=== PATIENT | female | born 1945 | race Caucasian/White ===

== ENCOUNTER → 2020-01-10 | Outpatient (CLI) | payer MEDICARE ==
[2020-01-10 13:30] LABS: Appearance,Urine Clear (Clear); Bilirubin,Urine Negative (Negative); Blood,Urine Negative (Negative); Color,Urine Yellow; Glucose,Urine (UA) Negative (Negative); Ketones,Urine Negative (Negative); Leukocyte Esterase,Urine Negative (Negative); Nitrite,Urine Negative (Negative); PH, Urine 5.5 (5.0-8.0); Protein,Urine Negative (Negative); Specific Gravity,Urine 1.017 (1.001-1.035); Urobilinogen,Urine <2.0 mg/dL (<2.0)
[2020-01-10 13:51] LABS: HCT 41.8 % (34.0-46.0); HGB 13.1 gm/dL (11.4-16.0); Hypochromasia Slight; MCH 29.4 pg (25.0-35.0); MCHC 31.3 g/dL (31.0-37.0); MCV 93.9 fL (80.0-100.0); Mean Platelet Volume 7.2; Platelet Count 474 k/uL (150-450); RBC 4.45 m/uL (3.80-5.40); RDW 13.2 % (11.5-15.5); WBC 11.5 k/uL (3.8-10.6)
[2020-01-10 14:05] LABS: Potassium 4.6 mmol/L (3.5-5.1); Prothrombin Time 10.2 sec (9.0-12.0)
[2020-01-10 14:06] LABS: ALT 10 U/L (4-34); AST 16 U/L (14-36); African American GFR (CKD) >90 (>60 ml/min/1.73 sqM); Albumin 4.1 g/dL (3.5-5.0); Alkaline Phosphatase 119 U/L (38-126); Anion Gap 11 mmol/L; Blood Urea Nitrogen 18 mg/dL (7-17); Calcium 9.7 mg/dL (8.4-10.2); Carbon Dioxide 23 mmol/L (22-30); Chloride 107 mmol/L (98-107); Glucose 102 mg/dL (74-99); Non-African American GFR(CKD) 89 (>60 ml/min/1.73 sqM); Sodium 141 mmol/L (137-145); Total Bilirubin 0.2 mg/dL (0.2-1.3)
== END | disposition home or self-care (01) ==
LOC: LABPAT 12:15
PROVIDERS: ATTEND Orthopaedic Surgery
DX: Z01.818 Encounter for other preprocedural examination (principal); Z79.01 Long term (current) use of anticoagulants
CPT/HCPCS: 36415; 80053; 81003; 85027; 85610; 85730; 87070

== ENCOUNTER 2020-01-22 07:10 | Day surgery (SDC) | payer MEDICARE ==
[2020-01-18 09:16] VITALS: BMI 22.6
[~2020-01-22 07:10] MED LIST: ACETAMINOPHEN TAB 500 MG TAB PO ONE; BISACODYL 10 MG SUPP RECTAL PRN; DEXAMETHASONE SOD PHOSPHATE 10 MG/ML 1 ML VIAL IV ONE; DIAZEPAM 5 MG TAB PO PRN; GABAPENTIN 300 MG CAP PO ONE; HYDROcodone/APAP 5-325MG 1 EACH TAB PO PRN; HYDROmorphone 0.5 MG/0.5 ML SYRINGE IVP PRN; MAGNESIUM HYDROXIDE 2,400 MG/10 ML CUP PO PRN; MELOXICAM 7.5 MG TAB PO ONE; MIDAZOLAM 2 MG/2 ML VIAL IV PRN; NA PHOS,M-B/NA PHOS,DI-BA 133 ML ENEMA RECTAL PRN; NALOXONE 0.4 MG/ML 1 ML VIAL IV PRN; ONDANSETRON 4 MG/2 ML VIAL IVP ONE; ONDANSETRON 4 MG/2 ML VIAL IVP PRN; ROPIVACAINE 246.25 MG, EPINEPHrine 0.5 MG, KETOROLAC 30 MG, cloNIDine HCL/PF 80 MCG, WA... MISCELLANE ONE; TRANEXAMIC ACID 1,000 MG in SODIUM CHLORIDE 0.9% 100 ML IVPB ONE; hydrOXYzine PAMOATE 25 MG CAP PO PRN
[2020-01-22] MEDS ORDERED: ONDANSETRON 4 MG/2 ML VIAL ONE (07:23)
[2020-01-22] MEDS ORDERED: ACETAMINOPHEN TAB 500 MG TAB ONE (07:23)
[2020-01-22] MEDS: LACTATED RINGERS 1,000 ML IV SCH (07:45)
[2020-01-22] MEDS ORDERED: ROPIVACAINE 0.2%-NS ON-Q PUMP 1,090 MG, EMPTY PAIN BALL 1 EACH MISCELLANE PRN (08:42)
--- NOTE | 2020-01-22 08:42 | P.ANPRN ---
Procedure Note - Anesthesia - Nerve Block Performed Left Adductor Canal Infusion Date of Procedure: 01/22/20 Procedure Start Time: 08:10 Procedure Stop Time: 08:25 Location of Patient: PreOp Indication: Acute Post-Operative Pain, Requested by Surgeon Sedation Type: Sedate with meaningful contact maintained Preparation: Sterile Prep, Sterile Dressing Position: Supine Catheter: Indwelling Needle Types: Pajunk Needle Gauge: 21 Ultrasound used to visualize needle placement: Yes Ultrasound used to observe medication spread: Yes Blood Aspirated: No Pain Paresthesia on Injection Noted: No Resistance on Injection: Normal Image Stored and Saved: Yes Events: Uneventful and Well Tolerated (Ropivacaine 0.5% 20 mls)
[2020-01-22] MEDS ORDERED: fentaNYL (PF) 50 MCG/ML 2 ML AMP ONE (09:21)
[2020-01-22] MEDS ORDERED: MIDAZOLAM 2 MG/2 ML VIAL ONE (09:21)
[2020-01-22] MEDS ORDERED: PROPOFOL 10 MG/ML 20 ML VIAL IV ONE (09:21)
[2020-01-22] MEDS ORDERED: TRANEXAMIC ACID 1,000 MG/10 ML VIAL ONE (09:21)
[2020-01-22] MEDS ORDERED: SODIUM CHLORIDE 0.9% 100 ML BAG ONE (09:21)
--- NOTE | 2020-01-22 10:41 | P.OP ---
Date of Procedure: 01/22/20 Preoperative Diagnosis: Severe osteoarthritis left knee Postoperative Diagnosis: Severe osteoarthritis left knee Procedure(s) Performed: Left total knee arthroplasty Implants: [employer] II CR Oxinium cruciate retaining femoral component size 3, left [employer] left nonporous tibial baseplate size 3 [employer] Journey II, XLPE Deep Dished articular insert, size 10 mm, Size 3-4 left [employer] BCS resurfacing oval patellar component, 28 mm All components were cemented using Palacos R bone cement.. The articulation is Oxinium on polyethylene. Anesthesia: spinal Surgeon: Zack Jiménez Pyrometer Operator #1: Maya Magana Estimated Blood Loss (ml): 25 Pathology: other (Bone and cartilage) Condition: stable Disposition: PACU Indications for Procedure: After failure of conservative treatment we discussed the surgical and nonsurgical treatment options at length. Patient wishes to proceed with a total knee arthroplasty. Complications specific to this procedure were discussed at length, including but not limited to infection, bleeding, stiffness, and nerve injury. Covid-19 was also discussed at length with the patient, and they are aware of the current policies and procedures. The patient was given the option of delaying surgery, but they elect to proceed knowing these risks. Patient is aware of all these complications and informed consent was obtained Operative Findings: The operative findings are consistent with severe osteoarthritis the left knee Description of Procedure: Patient was seen in the preoperative area consent was reviewed and operative site was marked with a skin marker. An adductor canal pain catheter was placed by anesthesia in the preoperative area. Patient was then brought to the operating room and given preoperative antibiotics intravenously. A spinal anesthetic was administered by the anesthesia department. A tourniquet was placed on the upper thigh and the lower extremity was prepped and draped in usual sterile fashion. A gram of transexamic acid was given. A universal timeout was then performed which confirmed the patient's name, surgical site, ALLERGIES, and consent. The lower extremity was then exsanguinated and tourniquet was inflated to 250 mmHg. A standard and anterior midline approach to the knee was performed. The skin and subcutaneous tissue was dissected down to the patellar tendon. A medial parapatellar arthrotomy was then performed. The knee was then extended, the patellar was everted, and the knee was again flexed. The patellar fat pad was removed in order to enhance exposure. Anterior horns of both menisci were excised, and a release was performed to the posterior medial aspect of the knee. On gross visual inspection, there was complete loss of articular cartilage in the medial and patellofemoral joint spaces. There was also significant cartilage damage in the lateral compartment. There were multiple periarticular osteophytes which were then removed with a Ronguer. The femoral canal was then opened with the 9.5 mm intramedullary drill. The 8 mm intramedullary vin was then inserted into the femoral canal. The distal femoral cutting guide was then placed and set for 5 of valgus. The distal femoral cutting block was then pinned in place. The intramedullary vin was then removed, and the distal femur was then cut. The cutting block was then removed and the cut was checked for symmetry. Next, the sizing guide was then placed and set for 3 external rotation based off of the epicondylar axis and Whitesides line. Pins were then placed and the drill holes, and the femur was sized with the sizing stylus. The pins were then removed, and the sizing guide was then removed. The spikes of the femoral block was then placed into the predrilled holes, and malleted into place. Two 45 mm pins were then placed into the fixation holes on the cutting block. An mena wing was then used to ensure there would be no notching with the anterior cut. The anterior condyles were cut without notching. The anterior cord cut was then performed, followed by the posterior cut, posterior chamfer cut, and the anterior chamfer cut. The collateral ligaments were protected during the entire process. The cutting block was then removed, and the femoral canal was plugged with autologous bone. Attention was then directed to the tibia. The remaining ACL was removed with a Ronguer, and the tibia was then gently subluxed forward with a large bent knee retractor. Any remaining menisci was excised. The posterior lateral corner was cauterized in order to cauterize the lateral geniculate artery. The extra medullary tibial cutting guide was then placed, set for the appropriate rotation, slope, and depth of resection. The proximal tibia cutting guide was then pinned in place. Proximal tibia was then cut and sized. Next trials were then placed with the appropriate-sized insert. The knee was able to fully extend and flex to 130 and was stable throughout all range of motion. The knee was then extended, patella everted. Patella was then measured, and then using an osteotomy guide, the patella was cut at the appropriate level. The patella was then measured and drilled and the patella trial was then placed. The knee was then taken through range of motion with the patella trial and the patella tracked normally. The knee was then extended patella trial was then removed and the patella was everted. Knee was then flexed and lug holes were drilled through the femoral trial and the femoral trial was then removed. The tibial was then exposed, and the tibial broach guide was then pinned in place after it was set for the appropriate rotation to allow for the most coverage without overhang. The tibia was then reamed and broached. The cut surfaces of bone were then irrigated with pulsatile lavage. The posterior structures were injected with the ropivacaine solution. The knee was also irrigated with Irrisept solution. The components were then opened, the cement was mixed, and the components were then cemented in place. The cement was allowed to harden with the knee in full extension. While the cement was hardening, the remaining soft tissues were then injected with a ropivacaine solution, which consisted of 246.25 mg of ropivacaine, 0.5 mg of epinephrine, 30 mg of Toradol, 80 g of clonidine, and 48.45 mL of sterile water, for a total of 100 mL of fluid injected. After the cemented hardened. The tourniquet was released, and hemostasis was obtained. A second gram of transexamic acid was given. The knee was again irrigated. The knee was again taken through range of motion and found to be stable throughout all range of motion of 0-130, and the patella tracked normally. The fascia was then closed with #2 strata fix suture. The subcutaneous tissue was closed with 3-0 Vicryl and 3-0 strata fix. Dermabond glue was used for the skin and placed with the knee in flexion. The patient was placed in a sterile silver dressing. Patient was then transferred to recovery room in stable condition. The clinical nursing assistant ARTHUR Boyce was required due the complexity surgery and the need for a skilled surgical services manager. She assisted in positioning, draping, retraction, and closure of the wound.
[2020-01-22] MEDS ORDERED: SODIUM CHLORIDE 0.9% 1,000 ML IV ONE ×2 (13:04)
--- NOTE | 2020-01-22 16:17 | XR ---
EXAMINATION TYPE: XR knee limited LT DATE OF EXAM: 01/22/2020 COMPARISON: NONE HISTORY: 74-year-old female evaluation for postoperative abnormality in alignment TECHNIQUE: 2 views FINDINGS: Images show placement of left knee total arthroplasty. The distal femoral and proximal tibial compone nts of the prosthesis appear well seated without periprosthetic fracture. Alignment grossly anatomic. Anterior soft tissue swelling with scattered soft tissue air and intra-articular air related to rece nt operation. IMPRESSION: Uncomplicated postoperative appearance left total knee arthroplasty.
[2020-01-22] MEDS: SODIUM CHLORIDE 0.9% 1,000 ML IV SCH ×2 (16:43→23:42)
[2020-01-22 20:41] VITALS: RESP 15
[2020-01-22] MEDS ORDERED: SENNOSIDES-DOCUSATE SODIUM 1 EACH TAB PO SCH (21:00)
--- NOTE | 2020-01-22 21:58 | P.CONS ---
History of Present Illness - Reason for Consult Consult date: 01/22/20 Medical management Requesting physician: Zack Jiménez - Chief Complaint Left knee pain - History of Present Illness Consultation: This is a very pleasant [address] Laura Marcus. Today underwent left total knee arthroplasty. Postprocedure pain is well controlled. No nausea vomiting. Did tolerate a light supper. Chronic stable medical conditions include hyperl ipidemia, rheumatoid arthritis, some osteoarthritis, dry eyes. Denies any cardiac history. No nausea vomiting. No fever or chills. No chest pain. Patient has been doing well on Humira for the rheumatoid arthritis Review of systems: GEN.: None EYES: Dry eyes HEENT: None NECK: None RESPIRATORY: None CARDIOVASCULAR: None GASTROINTESTINAL: None GENITOURINARY: None MUSCULOSKELETAL: Joint pains LYMPHATICS: None HEMATOLOGICAL: None PSYCHIATRY: None NEUROLOGICAL: None Past medical history to include: Osteoarthritis, rheumatoid arthritis, dry eyes, hyperlipidemia Social history: Does not smoke. Alcohol occasionally. . Family history: Reviewed, noncontributory to presentation Physical examination: VITAL SIGNS: 97.6, 75, 18, 105/74, 95% room air GENERAL: BMI 21.5, laying in bed comfortable. EYES: Pupils equal. Conjunctiva normal. HEENT: External appearance of nose and ears normal, oral cavity grossly normal. NECK: JVD not raised; masses not palpable. HEART: First and second heart sounds are normal; no edema. LUNGS: Respiratory rate normal; clear to auscultation. ABDOMEN: Soft, nontender, liver spleen not palpable, no masses palpable. PSYCH: Alert and oriented x3; mood and affect normal MUSCULOSKELETAL: Dressing over the left knee, evidence of severe RA specially in the right hand. NEUROLOGICAL: Cranial nerves grossly intact; no facial asymmetry, power and sensation grossly intact. LYMPHATICS: No lymph nodes palpable in the axilla and neck INVESTIGATIONS, reviewed in the clinical context: White count 11.5 hemoglobin 13.4 and potassium 4.6 creatinine 0.65 Assessment: -Left total knee arthroplasty -Advanced rheumatoid arthritis -Primary osteoarthritis -Dry eyes -Hyperlipidemia Plan: Home medications to be resumed. Pain control is in place. Patient is on aspirin for DVT prophylaxis per Dr. Jiménez. Care was discussed with the patient. Question answered. Patient to follow-up with Dr. Marcus upon discharge. Thank you Dr. Jiménez Past Medical History Past Medical History: Hyperlipidemia, Rheumatoid Arthritis (RA) History of Any Multi-Drug Resistant Organisms: None Reported Past Surgical History: Hysterectomy, Orthopedic Surgery Additional Past Surgical History / Comment(s): Bilateral Cataract surgery, bilateral wrist fusions, left hand surgery, left elbow surgery, bilateral foot surgery. Past Anesthesia/Blood Transfusion Reactions: No Reported Reaction Smoking Status: Never smoker - Past Family History Father Family Medical History: No Reported History Medications and Allergies Home Medications Medication Instructions Recorded Confirmed Type Acetaminophen [Tylenol] 325 mg PO Q4H 01/18/20 01/18/20 History Adalimumab [Humira Pen] 40 mg SQ [id number] 01/18/20 01/18/20 History Pravastatin Sodium [Pravachol] 20 mg PO HS 01/18/20 01/18/20 History cycloSPORINE [Restasis] 1 applicator BOTH EYES BID 01/18/20 01/18/20 History Allergies Allergy/AdvReac Type Severity Reaction Status Date / Time No Known Allergies Allergy Verified 01/22/20 07:28 Physical Exam Vitals: Vital Signs Temp Pulse Pulse Resp BP Pulse Ox 01/22/20 20:08 97.7 F 87 15 107/60 94 L 01/22/20 16:13 97.6 F 75 18 105/74 95 01/22/20 14:40 72 16 111/59 98 01/22/20 13:40 61 16 104/52 100 01/22/20 13:10 70 16 100/51 100 01/22/20 12:45 72 16 99/52 100 01/22/20 12:15 65 16 103/55 100 01/22/20 12:00 68 16 104/59 100 01/22/20 11:45 69 16 103/56 100 01/22/20 11:30 62 16 105/54 99 01/22/20 11:19 96.9 F L 76 16 99/50 99 01/22/20 08:29 71 16 111/59 98 01/22/20 07:28 97.2 F L 97 16 133/75 97 Intake and Output 01/22/20 01/22/20 01/22/20 06:59 14:59 22:59 Intake Total 750 250 Output Total 25 Balance 725 250 Intake: IV 750 150 Oral 100 Output: Estimated Blood Loss 25 Other: Weight 53.3 kg 53.3 kg
[2020-01-22] MEDS: ASPIRIN 325 MG TAB PO SCH (23:14)
[2020-01-23] MEDS: LACTATED RINGERS 1,000 ML IV SCH (06:07)
[2020-01-23 06:43] LABS: Basophils % (A) 0 %; Eosinophils # (A) 0.1 k/uL (0-0.7); Eosinophils % (A) 1 %; HCT 30.8 % (34.0-46.0); Hypochromasia Slight; Lymphocytes % (A) 23 %; MCH 30.4 pg (25.0-35.0); MCHC 32.1 g/dL (31.0-37.0); MCV 94.7 fL (80.0-100.0); Mean Platelet Volume 6.8; Monocytes # (A) 0.8 k/uL (0-1.0); Monocytes % (A) 9 %; Neutrophils # (A) 5.6 k/uL (1.3-7.7); Neutrophils % (A) 64 %; Platelet Count 299 k/uL (150-450); RBC 3.26 m/uL (3.80-5.40); RDW 13.1 % (11.5-15.5); WBC 8.7 k/uL (3.8-10.6)
[2020-01-23 07:09] LABS: HGB 9.9 gm/dL (11.4-16.0)
[2020-01-23] MEDS: SODIUM CHLORIDE 0.9% 1,000 ML IV SCH (07:28)
[2020-01-23] MEDS: ASPIRIN 325 MG TAB PO SCH (08:04)
[2020-01-23 09:00] VITALS: BP 108/57; PULSE 66; TEMP 98.5
[2020-01-23] MEDS ORDERED: MELOXICAM 7.5 MG TAB PO SCH (09:00)
--- NOTE | 2020-01-23 12:03 | P.DS ---
Providers Expected date of discharge: 01/23/20 Attending physician: Zack Jiménez Consults: 01/22/20 07:06 Consult Physician Routine Consulting Provider: Marlo Ibrahim Consult Reason/Comments: medical management Do you want consulting provider notified?: Yes Primary care physician: Court Marcus - Discharge Diagnosis(es) (1) Osteoarthritis of left knee Current Visit: Yes Status: Acute (2) Status post total left knee replacement Current Visit: Yes Status: Acute Hospital Course: This is a 74-year-old female with known history of degenerative arthritis of the left knee. The patient presents for evaluation. After discussion and consideration patient elects to proceed with total knee arthroplasty. The patient is seen preoperatively by Dr. Jiménez and medically cleared for surgery by their primary care physician. Patient is admitted to [facility] on 01/22/2020 for total knee arthroplasty. The procedures performed without complication or sequelae. The patient is doing well postoperatively. Labs and vital signs are stable on day of discharge. On day of discharge patient's knee incision is healing well. There is minimal erythema. There is no drainage noted at this time. There is minimal soft tissue swelling to the knee. Patient has full foot and ankle motion without difficulty or pain. Calf is soft and nontender to palpation. Neurovascular status to the left lower extremity is intact. Patient is discharged home in good condition. Opioid start talking form is reviewed and signed at patient bedside. Please see med rec for accurate list of home medications. Plan - Discharge Summary Discharge Rx Participant: Yes New Discharge Prescriptions: New Aspirin 325 mg PO BID #60 tab HYDROcodone/APAP 5-325MG [[place] 5-325] 1 - 2 tab PO Q6HR PRN #45 tab PRN Reason: Pain Sennosides [Senokot] 2 tab PO DAILY PRN #60 tablet PRN Reason: Constipation Continue cycloSPORINE [Restasis] 1 applicator BOTH EYES BID Acetaminophen [Tylenol] 325 mg PO Q4H Pravastatin Sodium [Pravachol] 20 mg PO HS Adalimumab [Humira Pen] 40 mg SQ [id number] Discharge Medication List Acetaminophen [Tylenol] 325 mg PO Q4H 01/18/20 [History] Adalimumab [Humira Pen] 40 mg SQ [id number] 01/18/20 [History] Pravastatin Sodium [Pravachol] 20 mg PO HS 01/18/20 [History] cycloSPORINE [Restasis] 1 applicator BOTH EYES BID 01/18/20 [History] Aspirin 325 mg PO BID #60 tab 01/23/20 [Rx] HYDROcodone/APAP 5-325MG [[place] 5-325] 1 - 2 tab PO Q6HR PRN #45 tab 01/23/20 [Rx] Sennosides [Senokot] 2 tab PO DAILY PRN #60 tablet 01/23/20 [Rx] Follow up Appointment(s)/Referral(s): [facility], [NON-STAFF] - Zack Jiménez DO [Doctor of Osteopathic Medicine] - 2 Weeks Cade Waldron [NON-STAFF] - Patient Instructions/Handouts: Precautions after Total Joint Replacement Surgery (DC) Activity/Diet/Wound Care/Special Instructions: 1. Please call [employer] once home to arrange delivery of Continuous Passive Motion (CPM) machine: [phone] Weightbearing as tolerated with a walker. CPM 5-6h daily. Leave dressing intact. May be removed by home care nurse or by patient in 10 days. May shower with dressing on. Recommend use of compression stockings daily until follow up to help prevent swelling and blood clots. May remove at night before sleeping. Please follow up with [facility] and call with any questions or concerns, . Discharge Disposition: HOME WITH HOME HEALTH SERVICES
--- NOTE | 2020-01-23 12:37 | P.PN ---
Progress Note - Text 01/22 646am 74-year-old female status post total knee replacement. Patient has an On-Q pump for postop pain control, patient seen and evaluated this morning, patient has a VAS of 2. On-Q pump solution running at 8 mL an hour. Plan to continue On-Q pump infusion
--- NOTE | 2020-01-23 23:07 | P.PN ---
Progress Note - Text Progress Note Date: 01/23/20 - Chief Complaint Left knee pain Consultation: This is a very pleasant [address] Laura Marcus. Today underwent left total knee arthroplasty. Postprocedure pain is well controlled. No nausea vomiting. Did tolerate a light supper. Chronic stable medical conditions include hyperlipidemia, rheumatoid arthritis, some osteoarthritis, dry eyes. Denies any cardiac history. No nausea vomiting. No fever or chills. No chest pain. Patient has been doing well on Humira for the rheumatoid arthritis Today-doing well. Pain control. Did tolerate her breakfast. Has been out of bed. Review of systems: Was done for constitutional, cardiovascular, GI, pulmonary. Musculoskeletal relevant finding as above Current medications reviewed in today's electronic records Physical examination: VITAL SIGNS: 98.5, 66, 18, 108/57, 96% room air GENERAL: BMI 21.5, laying in bed comfortable. EYES: Pupils equal. Conjunctiva normal. HEENT: External appearance of nose and ears normal, oral cavity grossly normal. NECK: JVD not raised; masses not palpable. HEART: First and second heart sounds are normal; no edema. LUNGS: Respiratory rate normal; clear to auscultation. ABDOMEN: Soft, nontender, liver spleen not palpable, no masses palpable. PSYCH: Alert and oriented x3; mood and affect normal MUSCULOSKELETAL: Dressing over the left knee, evidence of severe RA specially in the right hand. INVESTIGATIONS, reviewed in the clinical context: White count 8.7 hemoglobin 9.9 platelets 299 Previous testing White count 11.5 hemoglobin 13.4 and potassium 4.6 creatinine 0.65 Assessment: -Left total knee arthroplasty -Advanced rheumatoid arthritis -Primary osteoarthritis -Dry eyes -Hyperlipidemia -Acute postprocedure blood loss anemia expected from surgery Plan: Care discussed with the patient. Stable. Patient to follow-up with Dr. Marcus upon discharge. Thank you Dr. Jiménez
== END 2020-01-23 12:45 | disposition home health service (06) ==
LOC: OR 07:10 → 6PED 15:34 → OR 01-23 12:45
PROVIDERS: ATTEND Orthopaedic Surgery
DX: M17.12 Unilateral primary osteoarthritis, left knee (principal); M25.762 Osteophyte, left knee; Z97.3 Presence of spectacles and contact lenses; Z79.899 Other long term (current) drug therapy; Z98.890 Other specified postprocedural states; M06.9 Rheumatoid arthritis, unspecified; E78.5 Hyperlipidemia, unspecified; Z83.3 Family history of diabetes mellitus; Z98.49 Cataract extraction status, unspecified eye; Z90.710 Acquired absence of both cervix and uterus; E78.00 Pure hypercholesterolemia, unspecified
CPT/HCPCS: 97110; 97161; 64448; 76942; 85025; 88300; 73560; 27447; C1713; C1776; J2250; J0171; J1100; J0690 ×2; J2405; J3010; J1885; J2795 ×2; J2704; J0735

== ENCOUNTER → 2020-04-08 | Outpatient (CLI) | payer MEDICARE ==
[2020-04-08 14:53] LABS: Appearance,Urine Clear (Clear); Bilirubin,Urine Negative (Negative); Blood,Urine Negative (Negative); Color,Urine Light Yellow; Glucose,Urine (UA) Negative (Negative); Ketones,Urine Negative (Negative); Leukocyte Esterase,Urine Negative (Negative); Nitrite,Urine Negative (Negative); PH, Urine 5.5 (5.0-8.0); Protein,Urine Negative (Negative); Specific Gravity,Urine 1.009 (1.001-1.035); Urobilinogen,Urine <2.0 mg/dL (<2.0)
[2020-04-08 14:55] LABS: HCT 42.4 % (34.0-46.0); HGB 13.1 gm/dL (11.4-16.0); MCH 28.1 pg (25.0-35.0); MCHC 30.8 g/dL (31.0-37.0); MCV 91.3 fL (80.0-100.0); Mean Platelet Volume 6.7; Platelet Count 428 k/uL (150-450); RBC 4.64 m/uL (3.80-5.40); RDW 13.6 % (11.5-15.5); WBC 10.5 k/uL (3.8-10.6)
[2020-04-08 15:06] LABS: Albumin 4.4 g/dL (3.5-5.0); Calcium 9.8 mg/dL (8.4-10.2); Potassium 4.4 mmol/L (3.5-5.1); Total Bilirubin 0.3 mg/dL (0.2-1.3); Total Protein 8.6 g/dL (6.3-8.2)
[2020-04-08 15:19] LABS: Prothrombin Time 10.1 sec (9.0-12.0)
[2020-04-08 15:22] LABS: Partial Thromboplastin Time 21.6 sec (22.0-30.0)
== END | disposition home or self-care (01) ==
LOC: LABPAT 13:36
PROVIDERS: ATTEND Orthopaedic Surgery
DX: Z01.818 Encounter for other preprocedural examination (principal); Z79.01 Long term (current) use of anticoagulants; M17.11 Unilateral primary osteoarthritis, right knee; Z01.812 Encounter for preprocedural laboratory examination
CPT/HCPCS: 36415; 80053; 81003; 85027; 85610; 85730; 87070

== ENCOUNTER 2020-04-15 07:19 | Day surgery (SDC) | payer MEDICARE ==
[2020-04-08 09:32] VITALS: BMI 21.9
[~2020-04-15 07:19] MED LIST changes: -BISACODYL 10 MG SUPP RECTAL PRN; -DIAZEPAM 5 MG TAB PO PRN; -HYDROcodone/APAP 5-325MG 1 EACH TAB PO PRN; -MAGNESIUM HYDROXIDE 2,400 MG/10 ML CUP PO PRN; -NA PHOS,M-B/NA PHOS,DI-BA 133 ML ENEMA RECTAL PRN; -NALOXONE 0.4 MG/ML 1 ML VIAL IV PRN; -ONDANSETRON 4 MG/2 ML VIAL IVP PRN; +fentaNYL (PF) 50 MCG/ML 2 ML AMP IVP PRN; -hydrOXYzine PAMOATE 25 MG CAP PO PRN
[2020-04-15] MEDS: LACTATED RINGERS 1,000 ML IV SCH (08:07)
[2020-04-15] MEDS ORDERED: LIDOCAINE 1% (10MG/ML) FOR IV START INTRADERMA ONE (08:07)
[2020-04-15] MEDS ORDERED: MIDAZOLAM 2 MG/2 ML VIAL IVP ONE (08:27)
--- NOTE | 2020-04-15 08:52 | P.HPOR ---
History of Present Illness H&P Date: 04/15/20 Chief Complaint: R Knee pain No changes to history and physical Past Medical History Past Medical History: Hyperlipidemia, Osteoarthritis (OA), Rheumatoid Arthritis (RA) Additional Past Medical History / Comment(s): HEART MURMUR, PAIN RIGHT KNEE. History of Any Multi-Drug Resistant Organisms: None Reported Past Surgical History: Hysterectomy Additional Past Surgical History / Comment(s): BILATERAL CATARACTS, BILATERAL WRIST FUSIONS, LEFT HAND SURGERY, LEFT ELBOW SURGERY, BARBARA FEET, TOTAL LEFT KNEE (01/22/20) Past Anesthesia/Blood Transfusion Reactions: No Reported Reaction Past Psychological History: Anxiety Smoking Status: Never smoker Past Alcohol Use History: Occasional Past Drug Use History: None Reported - Past Family History Father Family Medical History: No Reported History Mother Family Medical History: No Reported History Medications and Allergies Home Medications Medication Instructions Recorded Confirmed Type Adalimumab [Humira Pen] 40 mg SQ [id number] 01/18/20 04/08/20 History Pravastatin Sodium [Pravachol] 20 mg PO HS 01/18/20 04/15/20 History cycloSPORINE [Restasis] 1 applicator BOTH EYES BID 01/18/20 04/15/20 History Acetaminophen [Tylenol Arthritis] 650 mg PO BID PRN 04/08/20 04/15/20 History Allergies Allergy/AdvReac Type Severity Reaction Status Date / Time No Known Allergies Allergy Verified 04/15/20 07:50 Physical Examination Osteopathic Statement: *. No significant issues noted on an osteopathic structural exam other than those noted in the History and Physical/Consult.
[2020-04-15] MEDS ORDERED: HYDROcodone/APAP 5-325MG 1 EACH TAB PO PRN ×2 (09:04)
[2020-04-15] MEDS ORDERED: MAGNESIUM HYDROXIDE 2,400 MG/10 ML CUP PO PRN (09:04)
[2020-04-15] MEDS ORDERED: bisacodyL 10 MG SUPP RECTAL PRN (09:04)
[2020-04-15] MEDS ORDERED: HYDROmorphone 0.5 MG/0.5 ML SYRINGE IVP PRN ×3 (09:04)
[2020-04-15] MEDS ORDERED: NA PHOS,M-B/NA PHOS,DI-BA 133 ML ENEMA RECTAL PRN (09:04)
[2020-04-15] MEDS ORDERED: NALOXONE 0.4 MG/ML 1 ML VIAL IV PRN (09:04)
[2020-04-15] MEDS ORDERED: ONDANSETRON 4 MG/2 ML VIAL IVP PRN (09:04)
[2020-04-15] MEDS ORDERED: SODIUM CHLORIDE 0.9% 100 ML BAG ONE (09:06)
[2020-04-15] MEDS ORDERED: MIDAZOLAM 2 MG/2 ML VIAL ONE (09:06)
[2020-04-15] MEDS ORDERED: fentaNYL (PF) 50 MCG/ML 2 ML AMP ONE (09:06)
[2020-04-15] MEDS ORDERED: PHENYLEPHRINE-0.9% NACL SYG 1 MG/10 ML SYRINGE ONE (09:06)
[2020-04-15] MEDS ORDERED: PROPOFOL 10 MG/ML 20 ML VIAL IV ONE (09:06)
[2020-04-15] MEDS ORDERED: TRANEXAMIC ACID 1,000 MG/10 ML VIAL ONE (09:06)
[2020-04-15] MEDS ORDERED: ceFAZolin 3,000 MG in SODIUM CHLORIDE 0.9% IRRIGATIO 3,000 ML IRRIGATION ONE (09:09)
--- NOTE | 2020-04-15 10:14 | P.OP ---
Date of Procedure: 04/15/20 Preoperative Diagnosis: Severe osteoarthritis of the right knee Postoperative Diagnosis: Severe osteoarthritis of the right knee Procedure(s) Performed: Right total knee arthroplasty Implants: Anguiano [employer] Nephew Journey II CR Oxinium cruciate retaining femoral component size 3, right Anguinao & Nephew Journey right nonporous tibial baseplate size 3 Angu[employer]hew Journey II, XLPE Deep Dished articular insert, size 10 mm, Size 3-4 right [employer] Journey BCS resurfacing oval patellar component, 29 mm All components were cemented using Palacos R bone cement.. The articulation is Oxinium on polyethylene. Anesthesia: spinal Surgeon: Zack Jiménez Meter/Relay Technician #1: Maya Magana Estimated Blood Loss (ml): 30 Pathology: other (Bone and cartilage) Condition: stable Disposition: PACU Indications for Procedure: After failure of conservative treatment we discussed the surgical and nonsurgical treatment options at length. Patient wishes to proceed with a total knee arthroplasty. Complications specific to this procedure were discussed at length, including but not limited to infection, bleeding, stiffness, and nerve injury. Covid-19 was also discussed at length with the patient, and they are aware of the current policies and procedures. The patient was given the option of delaying surgery, but they elect to proceed knowing these risks. Patient is aware of all these complications and informed consent was obtained Operative Findings: The operative findings are consistent with severe osteoarthritis of the right knee Description of Procedure: Patient was seen in the preoperative area consent was reviewed and operative site was marked with a skin marker. An adductor canal pain catheter was placed by anesthesia in the preoperative area. Patient was then brought to the operating room and given preoperative antibiotics intravenously. A spinal anesthetic was administered by the anesthesia department. A tourniquet was placed on the upper thigh and the lower extremity was prepped and draped in usual sterile fashion. A gram of transexamic acid was given. A universal timeout was then performed which confirmed the patient's name, surgical site, ALLERGIES, and consent. The lower extremity was then exsanguinated and tourniquet was inflated to 250 mmHg. A standard and anterior midline approach to the knee was performed. The skin and subcutaneous tissue was dissected down to the patellar tendon. A medial parapatellar arthrotomy was then performed. The knee was then extended, the patellar was everted, and the knee was again flexed. The patellar fat pad was removed in order to enhance exposure. Anterior horns of both menisci were excised, and a release was performed to the posterior medial aspect of the knee. On gross visual inspection, there was complete loss of articular cartilage in the medial and patellofemoral joint spaces. There was also significant cartilage damage in the lateral compartment. There were multiple periarticular osteophytes which were then removed with a Ronguer. The femoral canal was then opened with the 9.5 mm intramedullary drill. The 8 mm intramedullary vin was then inserted into the femoral canal. The distal femoral cutting guide was then placed and set for 5 of valgus. The distal femoral cutting block was then pinned in place. The intramedullary vin was then removed, and the distal femur was then cut. The cutting block was then removed and the cut was checked for symmetry. Next, the sizing guide was then placed and set for 3 external rotation based off of the epicondylar axis and Whitesides line. Pins were then placed and the drill holes, and the femur was sized with the sizing stylus. The pins were then removed, and the sizing guide was then removed. The spikes of the femoral block was then placed into the predrilled holes, and malleted into place. Two 45 mm pins were then placed into the fixation holes on the cutting block. An mena wing was then used to ensure there would be no notching with the anterior cut. The anterior condyles were cut without notching. The anterior cord cut was then performed, followed by the posterior cut, posterior chamfer cut, and the anterior chamfer cut. The collateral ligaments were protected during the entire process. The cutting block was then removed, and the femoral canal was plugged with autologous bone. Attention was then directed to the tibia. The remaining ACL was removed with a Ronguer, and the tibia was then gently subluxed forward with a large bent knee retractor. Any remaining menisci was excised. The posterior lateral corner was cauterized in order to cauterize the lateral geniculate artery. The extra medullary tibial cutting guide was then placed, set for the appropriate rotation, slope, and depth of resection. The proximal tibia cutting guide was then pinned in place. Proximal tibia was then cut and sized. Next trials were then placed with the appropriate-sized insert. The knee was able to fully extend and flex to 130 and was stable throughout all range of motion. The knee was then extended, patella everted. Patella was then measured, and then using an osteotomy guide, the patella was cut at the appropriate level. The patella was then measured and drilled and the patella trial was then placed. The knee was then taken through range of motion with the patella trial and the patella tracked normally. The knee was then extended patella trial was then removed and the patella was everted. Knee was then flexed and lug holes were drilled through the femoral trial and the femoral trial was then removed. The tibial was then exposed, and the tibial broach guide was then pinned in place after it was set for the appropriate rotation to allow for the most coverage without overhang. The tibia was then reamed and broached. The cut surfaces of bone were then irrigated with pulsatile lavage. The posterior structures were injected with the ropivacaine solution. The knee was also irrigated with Irrisept solution. The components were then opened, the cement was mixed, and the components were then cemented in place. The cement was allowed to harden with the knee in full extension. While the cement was hardening, the remaining soft tissues were then injected with a ropivacaine solution, which consisted of 246.25 mg of ropivacaine, 0.5 mg of epinephrine, 30 mg of Toradol, 80 g of clonidine, and 48.45 mL of sterile water, for a total of 100 mL of fluid injected. After the cemented hardened. The tourniquet was released, and hemostasis was obtained. A second gram of transexamic acid was given. The knee was again irrigated. The knee was again taken through range of motion and found to be stable throughout all range of motion of 0-130, and the patella tracked normally. The fascia was then closed with #2 strata fix suture. The subcutaneous tissue was closed with 3-0 Vicryl and 3-0 strata fix. Dermabond glue was used for the skin and placed with the knee in flexion. The patient was placed in a sterile silver dressing. Patient was then transferred to recovery room in stable condition. The equity sales assistant ARTHUR Boyce was required due the complexity surgery and the need for a skilled surgical oncologist. She assisted in positioning, draping, retraction, and closure of the wound.
[2020-04-15] MEDS ORDERED: LACTATED RINGERS 1,000 ML IV ONE (10:35)
--- NOTE | 2020-04-15 10:41 | P.ANPRN ---
Procedure Note - Anesthesia - Nerve Block Performed Right Adductor Canal Infusion Time Out Performed: Yes (826) Date of Procedure: 04/15/20 Procedure Start Time: : Procedure Stop Time: :33 Location of Patient: PreOp Indication: Acute Post-Operative Pain, Requested by Surgeon Specifically requested for management of pain by DrIfrah: Zack Jiménez Sedation Type: Sedate with meaningful contact maintained Preparation: Sterile Prep Position: Supine Catheter Depth at Skin (cm): 6 Catheter: Indwelling Needle Types: Pajunk Needle Gauge: 21 Ultrasound used to visualize needle placement: Yes Ultrasound used to observe medication spread: Yes Injectate: 0.5% Ropivacaine (see comment for volume) (20cc) Blood Aspirated: No Pain Paresthesia on Injection Noted: No Resistance on Injection: Normal Image Stored and Saved: Yes Events: Uneventful and Well Tolerated
[2020-04-15] MEDS ORDERED: ROPIVACAINE 0.2%-NS ON-Q PUMP 1,090 MG, EMPTY PAIN BALL 1 EACH MISCELLANE PRN (10:48)
--- NOTE | 2020-04-15 11:29 | XR ---
EXAMINATION TYPE: XR knee limited RT DATE OF EXAM: 04/15/2020 COMPARISON: NONE HISTORY: 74-year-old female evaluation for postoperative abnormality and alignment TECHNIQUE: 2 views FINDINGS: Images show placement of right total knee arthroplasty. 2 distal femoral and proximal tibial componen ts of the prosthesis are well seated without periprosthetic fracture. Alignment grossly anatomic. Und erlying foci of air within the joint space and also within the soft tissues related to recent operati on. Anterior soft tissue swelling. IMPRESSION: Uncomplicated postoperative appearance right total knee arthroplasty.
[2020-04-15] MEDS: SODIUM CHLORIDE 0.9% 1,000 ML IV SCH (12:44)
--- NOTE | 2020-04-15 16:15 | P.CONS ---
History of Present Illness - Reason for Consult Consult date: 04/15/20 Medical management Requesting physician: Zack Jiménez - Chief Complaint Right knee pain - History of Present Illness Consultation: This is a pleasant 74-year-old patient of Dr. Souleymane Marcus. Chronic stable medical conditions include osteoarthritis, rheumatoid arthritis, hyperlipidemia, dry eyes. Patient underwent right total knee arthroplasty. Pain is controlled. Postprocedure no nausea vomiting. No shortness of breath no chest pain. Sitting up in a bed. Review of systems: GEN.: None EYES: Dry eyes HEENT: None NECK: None RESPIRATORY: None CARDIOVASCULAR: None GASTROINTESTINAL: None GENITOURINARY: None MUSCULOSKELETAL: Joint pains LYMPHATICS: None HEMATOLOGICAL: None PSYCHIATRY: None NEUROLOGICAL: None Past medical history to include: Hyperlipidemia, osteoarthritis, rheumatoid arthritis, dry eyes Social history: Patient does use a cane and a walker. . No history of smoking. Alcohol occasionally. Family history: Reviewed, noncontributory to presentation Physical examination: VITAL SIGNS: 97.8, 93, 18, 102/66, 97% on room air GENERAL: Sitting up in bed, awake, BMI 21.9. EYES: Pupils equal. Conjunctiva normal. HEENT: External appearance of nose and ears normal, oral cavity grossly normal. NECK: JVD not raised; masses not palpable. HEART: First and second heart sounds are normal; no edema. LUNGS: Respiratory rate normal; clear to auscultation. ABDOMEN: Soft, nontender, liver spleen not palpable, no masses palpable. PSYCH: Alert and oriented x3; mood and affect normal. MUSCULAR skeletal: Evidence of OA, dressing over the right knee NEUROLOGICAL: Cranial nerves grossly intact; no facial asymmetry, power and sensation grossly intact. LYMPHATICS: No lymph nodes palpable in the axilla and neck INVESTIGATIONS, reviewed in the clinical context: 04/08/2020 White count 10.5 hemoglobin 13.1 potassium 4.4 creatinine 0.9 to Assessment: -Right total knee arthroplasty -Primary osteoarthritis -Chronic rheumatoid arthritis -Hyperlipidemia -Dry eyes Plan: Home medications be resumed. Pain control is in place. Patient's aspirin for DVT prophylaxis per Dr. Jiménez. Care was discussed with the patient. Questions answered. Thank you Dr. Jiménez Past Medical History Past Medical History: Hyperlipidemia, Osteoarthritis (OA), Rheumatoid Arthritis (RA) Additional Past Medical History / Comment(s): HEART MURMUR, PAIN RIGHT KNEE. History of Any Multi-Drug Resistant Organisms: None Reported Past Surgical History: Hysterectomy Additional Past Surgical History / Comment(s): BILATERAL CATARACTS, BILATERAL WRIST FUSIONS, LEFT HAND SURGERY, LEFT ELBOW SURGERY, BARBARA FEET, TOTAL LEFT KNEE (01/22/20) Past Anesthesia/Blood Transfusion Reactions: No Reported Reaction Smoking Status: Never smoker - Past Family History Father Family Medical History: No Reported History Mother Family Medical History: No Reported History Medications and Allergies Home Medications Medication Instructions Recorded Confirmed Type Adalimumab [Humira Pen] 40 mg SQ [id number] 01/18/20 04/08/20 History Pravastatin Sodium [Pravachol] 20 mg PO HS 01/18/20 04/15/20 History cycloSPORINE [Restasis] 1 applicator BOTH EYES BID 01/18/20 04/15/20 History Acetaminophen [Tylenol Arthritis] 650 mg PO BID PRN 04/08/20 04/15/20 History Allergies Allergy/AdvReac Type Severity Reaction Status Date / Time No Known Allergies Allergy Verified 04/15/20 07:50 Physical Exam Vitals: Vital Signs Temp Pulse Pulse Resp BP BP Pulse Ox 04/15/20 14:46 97.8 F 93 18 102/66 97 04/15/20 12:04 97.7 F 75 16 95/62 98 04/15/20 11:45 78 16 91/52 97 04/15/20 11:28 77 16 95/53 97 04/15/20 11:13 75 16 97/52 95 04/15/20 10:58 83 16 93/47 95 04/15/20 10:43 82 16 86/57 94 L 04/15/20 08:45 73 16 116/57 96 04/15/20 07:52 98.0 F 90 18 156/71 90 L Intake and Output 04/15/20 04/15/20 04/15/20 06:59 14:59 22:59 Intake Total 1401 Output Total 30 Balance 1371 Intake: IV 1201 Oral 200 Output: Estimated Blood Loss 30 Other: # Voids 0 Weight 54.3 kg
[2020-04-15] MEDS: ASPIRIN 325 MG TAB PO SCH (20:20)
[2020-04-15] MEDS ORDERED: SENNOSIDES-DOCUSATE SODIUM 1 EACH TAB PO SCH (21:00)
[2020-04-15] MEDS ORDERED: PRAVASTATIN SODIUM 20 MG TAB PO SCH (21:00)
[2020-04-15] MEDS: cycloSPORINE 0.05% OPHTH 0.4 ML DROPERETTE BOTH EYES SCH (21:37)
[2020-04-16] MEDS: SODIUM CHLORIDE 0.9% 1,000 ML IV SCH (01:38)
[2020-04-16] MEDS: LACTATED RINGERS 1,000 ML IV SCH (05:57)
[2020-04-16 06:32] LABS: Basophils % (A) 0 %; Eosinophils % (A) 0 %; HCT 34.5 % (34.0-46.0); HGB 10.8 gm/dL (11.4-16.0); Lymphocytes # (A) 2.3 k/uL (1.0-4.8); Lymphocytes % (A) 20 %; MCH 28.8 pg (25.0-35.0); MCHC 31.4 g/dL (31.0-37.0); MCV 91.5 fL (80.0-100.0); Mean Platelet Volume 6.6; Monocytes # (A) 0.8 k/uL (0-1.0); Monocytes % (A) 7 %; Neutrophils # (A) 7.9 k/uL (1.3-7.7); Neutrophils % (A) 71 %; Platelet Count 330 k/uL (150-450); RBC 3.77 m/uL (3.80-5.40); RDW 13.8 % (11.5-15.5); WBC 11.1 k/uL (3.8-10.6)
[2020-04-16 07:11] VITALS: BP 97/61; PULSE 63; RESP 20; TEMP 98.2
--- NOTE | 2020-04-16 07:17 | P.PN ---
Progress Note - Text Progress Note Date: 04/16/20 (560) Anesthesiology Postop day 1 status post total knee arthroplasty with adductor canal catheter. Patient doing well. VAS 2-3 out of 10. Gross strength intact in lower extremity. Afebrile. Denies alterations in sensorium. Catheter site intact. Heart regular rate Lungs nonlabored Abdomen nondistended Assessment: Postop day 1 status post total knee arthroplasty with adductor canal catheter Plan: All questions answered. Maintain catheter 2 more days with patient removal at home. Instructions were given at discharge.
[2020-04-16] MEDS: cycloSPORINE 0.05% OPHTH 0.4 ML DROPERETTE BOTH EYES SCH (07:31)
[2020-04-16] MEDS ORDERED: ACETAMINOPHEN TAB 325 MG TAB PO STA ×2 (07:32→13:10)
[2020-04-16] MEDS: ASPIRIN 325 MG TAB PO SCH (07:44)
[2020-04-16] MEDS ORDERED: MELOXICAM 7.5 MG TAB PO SCH (09:00)
--- NOTE | 2020-04-16 11:22 | P.DS ---
Providers Expected date of discharge: 04/16/20 Attending physician: Zack Jiménez Consults: 04/15/20 09:04 Consult Physician Routine Consulting Provider: Marlo Ibrahim Consult Reason/Comments: medical management Do you want consulting provider notified?: Yes Primary care physician: Court Marcus [facility] Course: This is a 74-year-old female who was last seen with complaint of continued right knee pain. The patient has a known history of degenerative arthritis of the right knee and presents to discuss surgical options. After discussion and consideration the patient elects to proceed with total right knee arthroplasty. The patient is seen preoperatively by Dr. Marcus and cleared for surgery. The patient is admitted to [facility] for total right knee arthroplasty. The procedures performed without complication or sequelae. Patient is doing well postoperatively. Vital signs are stable at discharge. Labs are stable at discharge. Patient is seen and examined bedside this morning. She states she is doing very well and her pain is well-controlled. She has been ambulating with the assistance of a walker with no issues. She denies numbness or tingling of the right lower extremity. She denies chest pain, shortness breath, nausea, vomiting, fevers, chills. She is tolerating her diet well. She is voiding freely. She has not a bowel movement. Although she denies abdominal pain. On examination, the patient is sitting up in bed in no apparent distress. She is alert and oriented 3. On inspection of the right knee, there is a clean, dry, intact Optifoam dressing in place with no drainage. Mild swelling of the knee. Patient has good strength and range of motion of the right ankle. Motor and sensory function intact of the right lower extremity. Dorsalis pedis pulse +2. Right lower extremity is warm and well-perfused with brisk capillary refill distally. Calf is soft and nontender to palpation. The patient is discharged to home with home health care on postoperative day #1 pending medical clearance. Please see orders and refer to the med rec for accurate list of medications. Patient Condition at Discharge: Fair Plan - Discharge Summary Discharge Rx Participant: No New Discharge Prescriptions: New Aspirin 325 mg PO BID 30 Days #60 tab Hydrocodone/Acetaminophen [[place] 5-325] 1 - 2 tab PO Q6HR PRN #40 tab PRN Reason: Pain Sennosides-Docusate Sodium [Senokot-S] 2 tab PO HS PRN #30 tablet PRN Reason: Constipation Continue cycloSPORINE [Restasis] 1 applicator BOTH EYES BID Pravastatin Sodium [Pravachol] 20 mg PO HS Adalimumab [Humira Pen] 40 mg SQ [id number] Acetaminophen [Tylenol Arthritis] 650 mg PO BID PRN PRN Reason: Pain Discharge Medication List Adalimumab [Humira Pen] 40 mg SQ [id number] 01/18/20 [History] Pravastatin Sodium [Pravachol] 20 mg PO HS 01/18/20 [History] cycloSPORINE [Restasis] 1 applicator BOTH EYES BID 01/18/20 [History] Acetaminophen [Tylenol Arthritis] 650 mg PO BID PRN 04/08/20 [History] Aspirin 325 mg PO BID 30 Days #60 tab 04/16/20 [Rx] Hydrocodone/Acetaminophen [[place] 5-325] 1 - 2 tab PO Q6HR PRN #40 tab 04/16/20 [Rx] Sennosides-Docusate Sodium [Senokot-S] 2 tab PO HS PRN #30 tablet 04/16/20 [Rx] Follow up Appointment(s)/Referral(s): [facility], [NON-STAFF] - As Needed Zack Jiménez DO [Doctor of Osteopathic Medicine] - 04/29/20 1:30 pm Cade Waldron [NON-STAFF] - As Needed (Continuous Passive Motion knee machine.) Court Marcus MD [Primary Care Provider] - 1 Week (Office will call you with your appointment date and time.) Patient Instructions/Handouts: *Surgery [facility] - On-Q Pain Pump Discharge Instructions, Knee Replacement (DC) Activity/Diet/Wound Care/Special Instructions: Weightbearing as tolerated with walker. Leave dressing intact. Dressing may be removed by home care nurse or by patient in 10 days. May shower with dressing on. Please take aspirin 325mg twice daily for 30 days to prevent blood clots. Recommend use of compression stockings daily until follow up to help prevent swelling and blood clots. May remove at night before sleeping. Please follow-up with [facility] in 2 weeks and call with any questions or concerns, . Discharge Disposition: HOME WITH HOME HEALTH SERVICES
--- NOTE | 2020-04-17 22:42 | P.PN ---
Progress Note - Text Progress Note Date: 04/16/20 - Chief Complaint Right knee pain Consultation: This is a pleasant 74-year-old patient of Dr. Souleymane Marcus. Chronic stable medical conditions include osteoarthritis, rheumatoid arthritis, hyperlipidemia, dry eyes. Patient underwent right total knee arthroplasty. Today-feeling better. Some pain present. Did work with therapy. Did tolerate her diet. A bit tired Review of systems: Was done for constitutional, cardiovascular, GI, pulmonary. relevant finding as above Current medications reviewed in the electronic records Physical examination: VITAL SIGNS: 98.2, 63, 20, 97/61, 96% room air GENERAL: Sitting up in bed, awake, BMI 21.9. EYES: Pupils equal. Conjunctiva normal. HEENT: External appearance of nose and ears normal, oral cavity grossly normal. NECK: JVD not raised; masses not palpable. HEART: First and second heart sounds are normal; no edema. LUNGS: Respiratory rate normal; clear to auscultation. ABDOMEN: Soft, nontender, liver spleen not palpable, no masses palpable. PSYCH: Alert and oriented x3; mood and affect normal. MUSCULAR skeletal: Evidence of OA, dressing over the right knee . Evidence of RA, especially in the hands INVESTIGATIONS, reviewed in the clinical context: White count 11.1 hemoglobin 10.8 platelets 3:30 04/08/2020 White count 10.5 hemoglobin 13.1 potassium 4.4 creatinine 0.9 to Assessment: -Right total knee arthroplasty -Primary osteoarthritis -Chronic rheumatoid arthritis -Hyperlipidemia -Dry eyes -Acute postprocedure blood loss anemia, expected from surgery Plan: Care was discussed with the patient. Questions answered. Follow-up with PCP. Thank you Dr. Jiménez
== END 2020-04-16 13:38 | disposition home health service (06) ==
LOC: OR 07:19 → 4SSUR 10:40 → OR 04-16 13:38
PROVIDERS: ATTEND Orthopaedic Surgery
DX: M17.11 Unilateral primary osteoarthritis, right knee (principal); D62 Acute posthemorrhagic anemia; M06.9 Rheumatoid arthritis, unspecified; E78.5 Hyperlipidemia, unspecified; F41.9 Anxiety disorder, unspecified; Z79.899 Other long term (current) drug therapy; Z96.652 Presence of left artificial knee joint; Z98.890 Other specified postprocedural states; Z97.3 Presence of spectacles and contact lenses
CPT/HCPCS: 97116; 97110; 97161; 64448; 76942; 85025; 88300; 73560; 27447; C1713; C1776; J2250; J0171; J1100; J0690 ×3; J3010; J1885; J2795 ×2; J0735